=== PATIENT | male | born 1970 | race Caucasian/White ===

== ENCOUNTER 2019-09-03 16:47 | Inpatient (IN) | payer SELFPAY ==
[~2019-09-03] VITALS: Ht 177.8 cm; Wt 147.8 kg
--- NOTE | ~2019-09-03 | HEMODYNAMI ---
PATIENT:YOU FELIZ MEDICAL RECORD: [id number] : 68 [id number] ADMISSION DATE: 09/03/19 Generatedon:09/04/201916:01 Patient name: YOU FELIZ Patient #: [id number] : 1970 Date of study: 09/04/2019 Page: Of Hemodynamic Procedure Report Patient Data Patient Demographics Procedure consent was obtained First Name: YOU Gender: Male Last Name: TRAY : 1970 Patient #: [id number] Age: 48 year(s) Race: SSN: [id number] Additional ID: [id number] Contact details [address]: [address] [place] [address] State: [place] City: [place] Zip code: [address] Admission Admission Data Admission Date: 09/03/2019 Admission Time: 18:46 Room #: D.2313 Lab Results Lab Result Date: 09/04/2019 Lab Result Time: 0:00 Biochemistry Name Units Result Min Max BUN mg/dl 22 --(----)-* 7 18 Creatinine mg/dl 1 --(--*-)-- 0.6 1.3 eGFR ml/min 84 -*(----)-- 90 120 NONAFRICAN CBC Name Units Result Min Max Hemoglobin g/dl 13 -*(----)-- 13.5 17.5 Procedure Procedure Types Cath Procedure Diagnostic Procedure LHC LHC w/Coronaries Temporary Pacemaker Intra-Aortic Balloon Pump Cardioversion External Sedation Charges Moderate Sedation up to 45 minutes Procedure Description Procedure Date Procedure Date: 09/04/2019 Procedure Start Time: 14:48 Procedure End Time: 15:28 Procedure Staff Name Function Vasu Rob MD Performing Physician Dafne Skelton RT Monitor Richelle Hicks RT Scrub Sharlene Cristobal RN Nurse Jon Simental RT Crayon Grader Procedure Data Cath Procedure Fluoroscopy Diagnostic fluoroscopy Total fluoroscopy Time: 4.1 time: 4.1 min min Diagnostic fluoroscopy Total fluoroscopy dose: 791 dose: 791 mGy mGy Contrast Material Contrast Material Type Amount (ml) Isovue 300 60 Entry Location Entry Primary Successful Side Size Upsize Upsize Entry Closure Succes sful Closure Location (Fr) 1 (Fr) 2 (Fr) Remarks Device Remarks Femoral Right 6 Fr 8 Fr Sheath artery Short sutured in place Femoral Right 6 Fr Sheath vein Short sutured in place Femoral Left 4 Fr Sheath vein sutured in place Estimated blood loss: 5 ml Diagnostic catheters Device Type Used For End Catheter Placement MULTIPACK JL 4.0 5Fr Left Coronary catheter Angiography MULTIPACK 3DRC 5Fr Right Coronary catheter Angiography MULTIPACK Pigtail 5 Fr Multi-vessel catheter Angiography Procedure Complications No complications Procedure Medications Medication Administration Route Dosage 0.9% NaCl I.V. 100 ml/hr Oxygen 100 Lidocaine 2% added to field 20 Heparin Flush Bag added to field 2 bags (1000units/500ml NS) Diprivan 1% I.V. 15 mcg/kg/min (Propofol) Benadryl I.V. 50 mg Epinephrine I.V. 1 mg Epinephrine I.V. 1 mg Dopamine I.V. drip 20 mcg/kg/min (400mg/250ml D5W) Atropine I.V. 1 mg Sodium Bicarb I.V. 50 meq Sodium Bicarb I.V. 50 meq Calcium Chloride I.V. 1 g Sodium Bicarb I.V. 50 meq Heparin Drip I.V. drip 1000 units/hr (91698nxkup/250 D5W) Amiodarone Loading I.V. drip 150 mg Dose (150mg/100ml D5W) Epinephrine I.V. 1 mg Neosynephrine I.V. drip 30 mcg/kg/min (20mg/250ml D5W) Hemodynamics Rest HGB: 13 (g/dl) Heart Rate: 33 (bpm) Pressure Samples Time Site Value (mmHg) Purpose Heart Use Rate(bpm) 15:04 LV 176/37,43 Snapshot 106 Snapshots Pre Cath Intra NCS Post Cath Vital Signs Time Heart Resp SPO2 etCO2 NIBP (mmHg) Rhythm Pain Sedation Rate (ipm) (%) (mmHg) Status Level (bpm) 14:45:04 51 21 100 0 Measuring 3 0 (11) 1(A) degree , No Heart pain Block 14:46:28 36 15 100 0 Time 3 0 (11) 1(A) Exceeded degree , No Heart pain Block 14:51:26 37 15 100 0 Measuring 3 0 (11) 1(A) degree , No Heart pain Block 14:52:50 35 15 100 0 Time 3 0 (11) 1(A) Exceeded degree , No Heart pain Block 14:57:29 48 25 81 0 Time 3 0 (11) 1(A) Exceeded degree , No Heart pain Block 15:00:48 31 13 81 0 129/67(126) 3 0 (11) 1(A) degree , No Heart pain Block 15:05:47 [address] 0 (11) 1(A) , No pain 15:07:11 [address] 0 (11) 1(A) Exceeded , No pain 15:12:10 [address] 0 (11) 1(A) , No pain 15:13:34 [address] 0 (11) 1(A) Exceeded , No pain 15:17:44 90 25 98 0 Time NSR 0 (11) 1(A) Exceeded , No pain 15:22:43 84 20 98 0 Measuring NSR 0 (11) 1(A) , No pain 15:23:48 82 22 95 0 Time NSR 0 (11) 1(A) Exceeded , No pain 15:30:11 79 21 94 0 Time NSR 0 (11) 1(A) Exceeded , No pain 15:39:41 89 20 0 Time NSR 0 (11) 1(A) Exceeded , No pain Medications Time Medication Route Dose Verified Delivered Reason Not es Effectiveness by by 14:43:27 0.9% NaCl I.V. 100 ml/hr Vasu Su used for [facility] procedure MD SANABRIA 14:43:28 Oxygen vent 100% FiO2 Vasu Su for low 02 [facility] sats MD SANABRIA 14:44:07 Lidocaine 2% added 20ml vial Vasu Leone for local to [facility] anesthetic field MD WILDE 14:44:13 Heparin Flush added 2 bags Vasu Leone used for Bag to [facility] procedure (1000units/500ml field MD WILDE NS) 14:44:22 Diprivan 1% I.V. 15mcg/kg/min Vasu Su for inf using (Propofol) [facility] sedation upon MD SANABRIA arrival to 14:46:18 Benadryl I.V. 50 mg Vasu Sharlene used for [facility]ronJ[facility] Cristobal procedure MD SANABRIA 14:55:53 Epinephrine I.V. 1 mg Vasu Sharlene For DarronJas Cristobal bradycardia RN 14:57:23 Epinephrine I.V. 1 mg Vasu Sharlene For DarronJas Cristobal bradycardia MD SANABRIA 14:58:37 Dopamine I.V. 20 Vasu Sharlene Per (400mg/250ml drip mcg/kg/min DarronJas Cristobal physician D5W) MD SANABRIA 14:59:17 Atropine I.V. [address] [facility] bradycardia RN 15:00:49 Sodium Bicarb I.V. 50 meq Vasu Sharlene Per DarronJas Cristobal physician RN 15:01:53 Sodium Bicarb I.V. 50 meq Vasu Sharlene Per DarronJas Cristobal physician MD SANABRIA 15:02:03 Calcium Chloride I.V. 1 g Vasu Sharlene Per DarronJas Cristobal physician MD SANABRIA 15:05:05 Heparin Drip I.V. 1000 Vasu Sharlene Per (37868wvgpk/250 drip units/hr DarronJas Cristobal physician D5W) MD SANABRIA 15:09:23 Sodium Bicarb I.V. 50 meq Vasu Sharlene Per DarronJas Cristobal physician RN 15:21:56 Amiodarone I.V. 150 mg Vasu Sharlene Per Loading Dose drip [facility] physician (150mg/100ml RN D5W) 15:32:08 Epinephrine I.V. 1 mg Vasu Sharlene For DarronJas Cristobal bradycardia MD SANABRIA 15:36:50 Neosynephrine I.V. 30 Vasu Sharlene For (20mg/250ml D5W) drip mcg/kg/min [facility] hypotension revenue cycle administrator Log Time Note 14:20:49 Sharlene Cristobal RN sent for patient. Start room use. 14:22:51 Diagnostic Cath Status : Emergency 14:25:47 Lab Result : BUN 22 mg/dl 14:25:47 Lab Result : Hemoglobin 13 g/dl 14:25:47 Lab Result : eGFR NONAFRICAN 84 ml/min 14:25:47 Lab Result : Creatinine 1 mg/dl 14:26:51 Informed consent obtained and on chart 14:29:46 Procedure Status Emergent Heart Cath (AMI). 14:29:50 Time tracking: Regular hours (M-F 7:00 - 5:00) 14:29:55 Plan of Care:Hemodynamics will remain stable., Cardiac rhythm will remain stable., Comfort level will be maintained., Respiratory function will remain adequate., Patient/ family verbilizes understanding of procedure., Procedure tolerated without complication., Recovers from procedure without complications.. 14:30:06 Risk of Mortality: 2.1 14:30:10 Risk of blood transfusion: 0.8 14:30:14 Risk of JAY: 2.0 14:30:25 2) 60-89 Mildly reduced kidney function, and other findings (as for stage 1) point to kidney disease. 14:30:31 Maximum allowable contrast dose (3.7 X eGFR X 0.75)233 ml. 14:35:11 Patient received from ICU to [facility] 1 On ventilator. Tansferred to table in Supine position. 14:35:12 Warm blankets applied, and emmie hugger turned on for patient comfort. 14:35:12 Correct patient and procedure confirmed by team. 14:35:13 ECG and BP/O2 sat monitors applied to patient. 14:43:15 Vital chart was started 14:43:17 Baseline sample Acquired. 14:43:21 Rhythm: sinus bradycardia 14:43:27 0.9% NaCl 100 ml/hr I.V. was administered by Sharlene Cristobal RN; used for procedure; Verbal order read back and verified. 14:43:28 Oxygen 100% FiO2 vent was administered by Sharlene Cristobal RN; for low 02 sats; Verbal order read back and verified. 14:43:28 Full Disclosure recording started 14:43:32 H&P Date Dictated: 09/04/2019 Emergent; H&P N/A. 14:44:07 Lidocaine 2% 20ml vial added to field was administered by Vasu Rob MD; for local anesthetic; Verbal order read back and verified. 14:44:13 Heparin Flush Bag (1000units/500ml NS) 2 bags added to field was administered by Vasu Rob MD; used for procedure; Verbal order read back and verified. 14:44:22 Diprivan 1% (Propofol) 15mcg/kg/min I.V. was administered by Sharlene Cristobal RN; for sedation; infusing upon arrival to Verbal order read back and verified. 14:44:22 Pt arrived to [employer] on a Propofol drip and intubated. Unable to answer questions. 14:44:40 Family in waiting room. 14:44:50 Is the patient allergic to Iodine/contrast media? No. 14:45:00 Pre procedure: right dorsailis pedis pulse Doppler 14:45:03 Pre procedure: left dorsailis pedis pulse Doppler 14:45:25 Lab results completed and on chart. 14:45:43 --------ALL STOP TIME OUT------ 14:45:44 Final Timeout: patient, procedure, and site verified with staff and physician. All members of the team are in agreement. 14:45:46 Bilateral groins site verified by team. 14:45:50 Fire Safety Assessment: A--An alcohol-based skin anteseptic being used preoperatively., C--Open oxygen or nitrous oxide is being used., D--An ESU, laser, or fiber-optic light is being used. 14:46:05 Physical assessment completed. ASA score P 5 - A moribund patient who is not expected to survive without the operation as per Vasu Rob MD. 14:46:13 Sedation plan: IV Moderate Sedation Medication:Propofol 14:46:18 Benadryl 50 mg I.V. was administered by Sharlene Cristobal RN; used for procedure; Verbal order read back and verified. 14:46:27 Use device set Femoral Dx 14:46:28 ACIST Manifold (54161) opened to sterile field. 14:46:29 ACIST Hand Control (59910) opened to sterile field. 14:46:30 ACIST Syringe (37108) opened to sterile field. 14:46:31 Bag Decanter (2002S) opened to sterile field. 14:46:31 Medline Cath Pack ([id number]) opened to sterile field. 14:46:33 DIAGNOSTIC Multipack 5Fr catheter set ([id number]) opened to sterile field. 14:46:34 SHEATH 5FR [place] (HHB734) opened to sterile field. 14:46:35 EMERALD Guide Wire (502-220) opened to sterile field. 14:47:15 SHEATH 6FR [place] (ZET919) opened to sterile field. 14:47:16 5Fr J Tip Temporary Pacing Catheter ([id number]) opened to sterile field. 14:47:58 Procedure started. 14:48:39 Local anesthetic to right femoral artery with Lidocaine 2% by Vasu Rob MD.INITIAL ACCESS ONLY 14:49:03 A 6 Fr Short sheath was inserted into the Right Femoral artery 14:50:52 A 6 Fr Short sheath was inserted into the Right Femoral vein 14:51:30 Temporary pacer inserted 14:54:16 Temporary pacer turned on with the following settings: Rate 80, MA 2, Mode: Demand. 14:55:13 14:55:16 A MULTIPACK JL 4.0 5Fr catheter was advanced over the wire and used for Left Coronary Angiography. 14:55:22 Pt arrived from ICU bed 13 on 100% FiO2 via portable vent w/ propofol @ 15mcg/kg/min. Pt unresponsive to stimulus but pupils equal and reactive to light. Pt in complete HB. Code initiated @ 1455 and ROSC achieved. See med list for code medications. NANO BP at this time. MD in room and aware of pt state. 14:55:43 14:55:53 Epinephrine 1 mg I.V. was administered by Sharlene Cristobal RN; For bradycardia; Verbal order read back and verified. 14:56:53 DR Rob noted no pressure; chest compressions started 14:57:23 Epinephrine 1 mg I.V. was administered by Sharlene Cristobal RN; For bradycardia; Verbal order read back and verified. 14:57:38 chest compressions paused 14:58:37 Dopamine (400mg/250ml D5W) 20 mcg/kg/min I.V. drip was administered by Sharlene Cristobal RN; Per physician; Verbal order read back and verified. 14:59:17 Atropine 1 mg I.V. was administered by Sharlene Cristobal RN; For bradycardia; Verbal order read back and verified. 15:00:49 Sodium Bicarb 50 meq I.V. was administered by Sharlene Cristobal RN; Per physician; Verbal order read back and verified. 15:01:28 LCA angiography performed. 15:01:31 Injector settings: Ml/sec: 3, Volume: 6, 15:01:53 Sodium Bicarb 50 meq I.V. was administered by Sharlene Cristobal RN; Per physician; Verbal order read back and verified. 15:02:03 Calcium Chloride 1 g I.V. was administered by Sharlene Cristobal RN; Per physician; Verbal order read back and verified. 15:02:13 Catheter removed. 15:02:21 A MULTIPACK 3DRC 5Fr catheter was advanced over the wire and used for Right Coronary Angiography. 15:03:19 RCA angiography performed. 15:03:21 Injector settings: Ml/sec: 3, Volume: 6, 15:03:34 Catheter removed. 15:03:59 A MULTIPACK Pigtail 5 Fr catheter was advanced over the wire and used for Multi-vessel Angiography. 15:04:13 LV hemodynamics recorded. 15:04:14 LV gram done using LARES 15:04:17 Injector settings: Ml/sec: 5, Volume: 15, 15:05:05 Heparin Drip (69369pyqgm/250 D5W) 1000 units/hr I.V. drip was administered by Sharlene Cristobal RN; Per physician; Verbal order read back and verified. 15:05:07 EF : 5 % 15:05:11 Catheter removed. 15:05:56 IABP 40cm balloon catheter ([id number]) opened to sterile field. 15:05:57 TUBING High Pressure Extension (IABP) opened to sterile field. 15:06:24 Sheath upsized to a 8 Fr. 15:08:40 40cc IABP inserted into the RFA . 15:09:23 Sodium Bicarb 50 meq I.V. was administered by Sharlene Cristobal RN; Per physician; Verbal order read back and verified. 15:10:03 2-0 Silk 685H opened to sterile field. 15:10:04 2-0 Silk 685H opened to sterile field. 15:15:21 Quick Combo opened to sterile field. 15:15:29 Defibrillator synced and charged to 200 Joules. 15:15:31 Shock delivered. 15:16:[address] [facility] (129802) opened to sterile field. 15:17:08 Local anesthetic to left femoral vein with Lidocaine 2% by Vasu Rob MD.ADDITIONAL ACCESS 15:17:23 A 4 Fr sheath was inserted into the Left Femoral vein 15:17:55 4f sheath inserted for additional IV access 15:19:07 patient BP on iabp 89/58 15:20:16 Sheath removed intact; hemostasis achieved with Sheath sutured in place to the Left Femoral vein. 15:20:24 Sheath removed intact; hemostasis achieved with Sheath sutured in place to the Right Femoral artery. 15:20:30 Sheath removed intact; hemostasis achieved with Sheath sutured in place to the Right Femoral vein. 15:21:56 Amiodarone Loading Dose (150mg/100ml D5W) 150 mg I.V. drip was administered by Sharlene Cristobal RN; Per physician; Verbal order read back and verified. 15:24:01 Procedure ended.(Physican Out) 15:25:33 Fluoroscopy time 04.10 minutes. 15::37 Fluoroscopy dose: 791 mGy 15:: Flurop Dose total: 791 15:: Dose Area Product 85634 mGy/cm. 15:26: Contrast amount:Isovue 300 60ml. 15:26:31 Maximum allowable dose exceeded? No. 15::32 Sharps counted by scrub and verified by R.N. 15::33 Insertion/operative site no bleeding no hematoma. 15:26:49 Post procedure rhythm: sinus rhythm 15::51 Estimated blood loss: 5 ml 15:28:16 Procedure type changed to Cath procedure, Diagnostic procedure, LHC, LHC w/Coronaries, Temporary Pacemaker, Intra-Aortic Balloon Pump, Cardioversion External, Sedation Charges, Moderate Sedation up to 45 minutes 15:28:17 Procedure and supply charges have been captured, reviewed, submitted and are correct. 15:28:26 Procedure Complication : No complications 15:28:38 Vital chart was stopped 15:28:41 [facility] Findings: mild to moderate CAD (<70%) 15:28:44 Operative report dictated upon procedure completion. 15:28:45 See physician's report for complete and final results. 15:28:49 Report given to ICU. 15:28:52 Patient transfered to ICU with Stretcher. 15:28:55 Procedure ended. 15::55 Full Disclosure recording stopped 15:30:[address] [place] (240925) opened to sterile field. 15:32:08 Epinephrine 1 mg I.V. was administered by Sharlene Cristobal RN; For bradycardia; Verbal order read back and verified. 15:36:50 Neosynephrine (20mg/250ml D5W) 30 mcg/kg/min I.V. drip was administered by Sharlene Cristobal RN; For hypotension; Verbal order read back and verified. Device Usage Item Name Manufacture Quantity Catalog Number [facility] Part Suni mary [facility] Lot# / Charge Number Stock Stock Serial# Code ACIST Manifold Acist 1 59410 353687 317262 [id number] 5 (48081) Medical [employer] Inc ACIST Hand Acist 1 95294 074057 226297 237648 5 Control (81367) [employer] Inc ACIST Syringe Acist 1 12819 773555 504487 320734 20 (71731) Medical Systems Inc Bag Decanter Microtek 1 2001S 272376 39657 361588 5 (2001S) Medical Inc. Medline Cath Medline 1 [id number] 804829 25132 984269 5 Pack ([id number]) DIAGNOSTIC Cardinal 1 EM4156 315960 27135 542740 30 Multipack 5Fr Health catheter set (RU9275) SHEATH 5FR Terumo 1 YFJ507 002534 828131 664727 5 [place] (XQY054) EMERALD Guide Cardinal 1 502-455 018495 038431 899020 5 Wire (502-455) Health SHEATH 6FR Terumo 1 PLX498 004970 385347 587278 40 [place] (FMR207) 5Fr J Tip Mckeon 1 [id number] 352749 16987 759684 2 Temporary Lifesciences Pacing Catheter ([id number]) MULTIPACK JL Cardinal 1 552971 5 4.0 5Fr Health catheter MULTIPACK 3DRC Cardinal 1 105773 5 5Fr catheter Health MULTIPACK Cardinal 1 675443 5 Pigtail 5 Fr Health catheter IABP 40cm [facility] 1 1557-03-4803-01U 004486 177271 617099 1 LookUP catheter (252787) ([id number]) TUBING High Merit 1 [id number] 871718 913737 0 5 Pressure Medical Extension (IABP) 2-0 Silk 685H Ethicon 2 685H 335397 08392 171731 5 Quick Combo R-Health 1 12961-118750 120834 719615 988463 [address] [facility] 1 749014 893130 530335 013313 5 Armando (640759) SHEATH [address] [facility] Armando 1 964444 711593 639768 573060 Nicky Roberts ([id number]) Signature Audit [place] Stage Time Signature Unsigned Intra-Procedure 09/04/2019 Dafne Skelton 4:00:19 PM RT(R) Intra-Procedure 09/04/2019 Sharlene Cristobal 4:00:52 PM RN Intra-Procedure 09/04/2019 Vasu Saldana 4:01:25 PM Jas WILDE [place] [id number] [place] [address]
[2019-09-03] MEDS ORDERED: NEURONTIN 300300 MG PO (16:55)
[2019-09-03] MEDS ORDERED: CELEBREX 100 M100 MG PO (16:55)
[2019-09-03] MEDS ORDERED: ROBAXIN500 MG PO (16:55)
[2019-09-03] MEDS ORDERED: ZOLOFT50 MG PO (16:56)
[2019-09-03] MEDS ORDERED: XARELTO20 MG PO (16:56)
[2019-09-03 17:13] VITALS: BP 129/97
[2019-09-03 17:39] LABS: BASOPHILS 0.1 % (0-2); EOSINOPHILS 0 % (0-7); HEMATOCRIT 39.3 % (42.0-54.0); HEMOGLOBIN 12.5 g/dL (13.5-17.5); IMMATURE GRANULOCYTES 0.1 % (0-5); LYMPHOCYTES 8.6 % (15-50); MCH 29.4 pg (26.0-34.0); MCHC 31.8 g/dL (31.0-37.0); MCV 92.5 fL (80.0-100.0); MEAN PLATELET VOLUME 11.1 fL (7.4-10.4); MONOCYTES 6.4 % (2-11); NEUTROPHILS 84.8 % (40-80); PLATELET COUNT 212 10x3/uL (130-400); RBC 4.25 10x6/uL (4.20-6.10); RDW 14.8 % (11.5-14.5); WBC 7.3 10x3/uL (4.8-10.8)
[2019-09-03 17:48] LABS: CALC OSMOLALITY 277 mosm/kg (275-300); CALCIUM 8.5 mg/dL (8.5-10.1); CARBON DIOXIDE 27.6 mmol/L (21.0-32.0); CHLORIDE - SERUM 102 mmol/L (98-107); CREATININE - SERUM 0.9 mg/dL (0.6-1.3); GLUCOSE 117 mg/dL (74-106); POTASSIUM - SERUM 4.4 mmol/L (3.5-5.1); SODIUM 138 mmol/L (136-145); UREA NITROGEN 15 mg/dL (7-18); eGFR NON AFRICAN AMERICAN > 90 mL/min (90-120)
[2019-09-03 17:49] LABS: APTT 34.9 SECONDS (22.8-39.4); INR 1.63 (0.85-1.17); PROTIME 18.7 SECONDS (11.6-15.0)
[2019-09-03 18:14] LABS: ALBUMIN 3.3 g/dL (3.4-5.0); ALKALINE PHOSPHATASE 125 U/L (46-116); ALT (SGPT) 96 U/L (10-68); CKMB 1.9 U/L (0.0-3.6); CREATINE KINASE 156 UL (21-232); MAGNESIUM - SERUM 1.7 mg/dL (1.8-2.4); PROTEIN - SERUM 6.8 g/dL (6.4-8.2); TROPONIN-I 0.048 ng/mL (0.000-0.060)
[2019-09-03 20:00] VITALS: BP 102/82
--- NOTE | 2019-09-03 20:00 | NUR ---
RECEIVED REPORT FROM WILLIE. PATIENT IS ALERT AND ORIENTED, RESTING COMFORTABLY IN BED. RESPIRATIONS ARE EVEN AND UNLABORED. NO S/S OF DISTRESS. NO C/O PAIN. CALL LIGHT WITHIN REACH. WILL CPOC.
[2019-09-03 20:38] VITALS: BP 125/53
[2019-09-03 22:59] LABS: CKMB 1.4 U/L (0.0-3.6); CREATINE KINASE 126 UL (21-232); TROPONIN-I 0.038 ng/mL (0.000-0.060)
[2019-09-03 23:31] VITALS: BP 120/68; Ht 177.8 cm; Wt 147.8 kg
[2019-09-04] VITALS (28 sets, daily range): BP systolic 38–132; BP diastolic 10–95
--- NOTE | 2019-09-04 05:58 | NUR ---
PATIENT C/O SOB. VITALS OBTAINED BP 121/80. O2 99% ON 2L NC. R 22. PATIENT STATED THAT HE WAS SUPPOSE TO HAVE SOMETHING FOR HIS COUGH ORDERED. PATIENT COMPLAINING THAT THE PATIENT WAS SUPPOSE TO HAVE LASIX LIKE HE DID AT THE OTHER HOSPITAL. SAID SHE WAS TOLD THAT HE HAD FLUID AROUND HIS HEART. EXPLAINED TO PATIENT THAT HE WAS GOING TO HAVE AN ECHO THIS AM. PATIENT IS VITALS WERE GREAT. NEITHER THAT PATIENT OR WERE SATISIFED. PAGED DARRIUS GASPAR APN. ORDERED GIVEN FOR MIKE LANDRY.
[2019-09-04 06:27] LABS: HEMATOCRIT 41.1 % (42.0-54.0); MCH 29.7 pg (26.0-34.0); MCHC 31.6 g/dL (31.0-37.0); MCV 94.1 fL (80.0-100.0); MEAN PLATELET VOLUME 11.5 fL (7.4-10.4); PLATELET COUNT 236 10x3/uL (130-400); RBC 4.37 10x6/uL (4.20-6.10); RDW 14.9 % (11.5-14.5); WBC 7.9 10x3/uL (4.8-10.8)
[2019-09-04 06:38] LABS: CALC OSMOLALITY 282 mosm/kg (275-300); CALCIUM 8.5 mg/dL (8.5-10.1); CARBON DIOXIDE 29.6 mmol/L (21.0-32.0); CHLORIDE - SERUM 104 mmol/L (98-107); CKMB 1.5 U/L (0.0-3.6); CREATINE KINASE 107 UL (21-232); GLUCOSE 116 mg/dL (74-106); MAGNESIUM - SERUM 2.1 mg/dL (1.8-2.4); PHOSPHOROUS 3.4 mg/dL (2.5-4.9); POTASSIUM - SERUM 4.4 mmol/L (3.5-5.1); PRO BNP 6348 pg/mL (0-125); SODIUM 140 mmol/L (136-145); TROPONIN-I 0.032 ng/mL (0.000-0.060); eGFR NON AFRICAN AMERICAN 84 mL/min (90-120)
[2019-09-04 06:39] LABS: UREA NITROGEN 22 mg/dL (7-18)
--- NOTE | 2019-09-04 07:33 | NUR ---
REPORT RECEVIED FROM GLASS ETCHER AND PATIENT CARE ASSUMED. PATIENT LAYING IN BED ON LEFT SIDE WITH EYES CLOSED AND BREATHING EVENLY. AT BS. SHOWED WHERE KITCHENETTE AND COFEE WAS. WILL CONTINUE WITH PLAN OF CARE. SR UP X 2 BED IN LOW POSITION AND CALL LIGHT IN REACH.
[2019-09-04 10:16] LABS: EOSINOPHILS 1 % (0-7); LYMPHOCYTES 17 % (15-50); MONOCYTES 10 % (2-11); NEUTROPHILS 62 % (40-80); PLATELET ESTIMATE NORMAL; ROULEAUX OCC
--- NOTE | 2019-09-04 11:45 | CN ---
PATIENT NAME:YOU FELIZ MEDICAL RECORD: [id number] : 68 LOCATION:. D.2121 ADMIT DATE: 09/03/19 ACCOUNT: [id number] CONSULTING PHYSICIAN: SABINO GUZMAN MD REFERRING PHYSICIAN: WENDY SINGH MD DATE OF CONSULTATION: 09/04/2019 HISTORY OF PRESENT ILLNESS: A 48-year-old gentleman with a history of DVT diagnosed in December of 2018 during time of left hip reconstruction, placed on Xarelto at that time, complained of coughing, fever and chills over the last 3 days, found to be in atrial flutter, 2:1 block, rate slowed down somewhat, Cardizem drip. No anginal type symptomatology. We are asked to see him concerning his cardiovascular status. PAST MEDICAL HISTORY: Includes: 1. History of DVT, as described above. 2. Chronic pain. MEDICATIONS: Include Celebrex 200 mg p.o. daily, Neurontin 600 p.o. t.i.d., Zoloft 50 every day, Xarelto 20 mg p.o. day, Robaxin 1.5 grams t.i.d. ALLERGIES: PENICILLIN. SOCIAL HISTORY: Nonsmoker, nondrinker. Difficulty with his ADLs due to residual hip problems. No set exercise program. REVIEW OF SYSTEMS: The patient reports easy bruising but reports no swollen glands. The patient reports no fever, no night sweats, no significant weight gain, no significant weight loss. No significant exercise tolerance. The patient reports no dry eyes, no irritation, no vision change. Patient reports no difficulty hearing and no ear pain. Patient reports no frequent nose bleeds or nose and sinus problems. Patient reports on arm pain on exertion. No shortness of breath while lying down. No history of heart murmur. Patient reports no cough, no wheezing or coughing up blood. Patient reports no abdominal pain, no vomiting. Normal appetite. No diarrhea and not vomiting blood. No nausea and no constipation. Patient reports no incontinence. No difficulty urinating. No hematuria. No increased frequency. Patient reports no muscle aches. No weakness, no arthralgias, no back pain. No swelling of the extremities. Patient reports no abnormal mole, no jaundice, no rashes. Reports no loss of consciousness. No weakness and no numbness. No seizures, dizziness, or headaches. The patient reports no depression, no sleep disturbance, feeling safe in a relationship and no alcohol abuse. Patient reports on fatigue. Reports no runny nose or sinus pressure. No itching, no hives, and no frequent sneezing. PHYSICAL EXAMINATION: GENERAL: Pleasant gentleman, in no acute distress, appears stated age. VITAL SIGNS: Blood pressure 114/67, pulse 60 and irregular. HEENT: Normocephalic, atraumatic. NECK: No bruits noted. HEART: Irregularly irregular, II/ systolic ejection murmur. LUNGS: Diminished breath sounds, prolonged expiratory phase. ABDOMEN: Soft, nontender. EXTREMITIES: Pulses 2+, 1+ edema. CONSULT REPORT [id number] YOU FELIZ IMPRESSION: Atrial flutter, variable block. Her recent onset, we will plan for control rate with Cardizem drip, being class III antiarrhythmic, sotalol. PLAN: Cardioversion in the near future. TRANSINT:[id number] Voice Confirmation ID: [id number] DOCUMENT ID: [id number] SABINO GUZMAN MD at 1145 CC: [id number] DICTATION DATE: 09/04/1928 CLIENT SUPPORT ASSOCIATE: 09/04/19 0917 ADM [place] [id number] [place] [id number]
--- NOTE | 2019-09-04 12:15 | NUR ---
PATIENT SITTING UP ON SIDE OF BED EATING LUNCH. PATIENT BREATHING HEAVILY. PATIENT HAS NC AT 2 L GOING. O2 SAT 97%. ENCOURAGED PATIENT TO EAT SLOWLY AND INHALE THROUGH NOSE. PATIENT AND VERBALIZED UNDERSTANDING. NEW ORDER RECEIVED FOR BUMEX DRIP AND DOBUTAMINE DRIP. VERIFIED VERALLY OVER PHONE WITH DR GUZMAN THAT PATIENT NEEDS TO BE ON BUMEX, CARDIAZEM AND DOBUTAMINE DRIP AND DR GUZMAN VERIFIED THAT PATIEBNT DOES. CALLED PHARMACY AND SPOKE WITH JERONIMO AND LET HIM KNOW THAT PATIENT NEEDS RXS RAKAN. JERONIMO VERBALIZED UNDERSTANDING.
--- NOTE | 2019-09-04 13:57 | NUR ---
CALLED TO PATIENTS ROOM BY . UPON ENTERING ROOM, PATIENT LAYING IN BED ON BACK WITH HOB ELEVATED 45 DEGREES. IV DRIPS OF BUMEX, CARDIAZEM AND DOBUTAMINE INFUSING ORDERED. PATIENT HAS 02 NC INFUSING AT 4L. PATIENT IS CARLISLE IN COLOR, GASPING FOR BREATH. CALLED OUT FOR OTHER NURSE TO CALL RAPID RESPONSE. RAPID RESPONSE CALLED. NO AIR MOVEMENT AUSCULTATING PATIENTS LUNGS. DR SINGH ENTERED ROOM ORDERED AND PATIENT GIVEN SOLU MEDROL 15 IV PUSH. ORDER RECEIVED FROM DR SINGH FOR MONTSE GARCIA TO BE CALLED. MONTSE GARCIA CALLED . RESPIRATORY, ER AND ICU PERSONEL IN ROOM. ER DR SERINA WILLARD. ORDERS GIVEN AND MEDS GIVEN EOMIDATE 20 MG IV PUSH SUCCS 100 MG IV PUSH AND PATIENT INTUBATED AT 1347 AND RESPIRATORY WITH AMBU BAG RESPIRATIONS PATIENT TRANSFERRED TO ICU.
--- NOTE | 2019-09-04 13:58 | NUR ---
PT ARRIVED TO ROOM 2313 VIA BED ACCOPANIED BY STAFF. PT HOOKED UP TO MONITOR. VSS. WILL CONT TO MONITOR. RT AT BEDSIDE.
--- NOTE | 2019-09-04 14:31 | NUR ---
1400 DR GUZMAN IN TO SEE PT AND ORDER RECIEVED TO SEND PATIENT TO [facility] FOR LHC WITH POSSIBLE IABP.. SPOKE WITH DR GUZMAN AND SIGNED PERMITS. 1430 PT TRANSPORTED VIA BED WITH BAGGING TO ORAL ETT BY RT TO [facility] , FAMILY TAKEN TO [facility] WAITING ROOM
[2019-09-04 15:21] LABS: CHOL - HDL RATIO 4.2 ratio (2.3-4.9); LDL-HDL RATIO 2.7 ratio (1.5-3.5)
--- NOTE | 2019-09-04 16:15 | NUR ---
PT BACK FROM CLINICAL APPEALS AUDITOR AT THIS TIME. DR LOU AT BEDSIDE NEW ORDER RECEIVED. IABP PATENT DRSG CDI NO BLOOD VISIBLE IN TUBING, NO PEDAL PULSE PRESENT AT THIS TIME. BILAT LEGS COLD TO TOUCH MINIMAL MOTTLING NOTED, BILAT PEDAL PULSE ABSENT. BILAT RADIAL PULSES WEAK. TPM NOTED PATENT VVI 80 VMA 20 SENSITIVITY 2. SEE FLOW SHEET FOR IABP FINDINGS. FOURNIER PLACED AT THIS TIME 0 UOP NOTED PHYSICIAN NOTIFIED.
--- NOTE | 2019-09-04 17:43 | NUR ---
DR GUZMAN PUT RATE OF 25 FOR DOPAMINE AND [address] LOU.
--- NOTE | 2019-09-04 17:46 | NUR ---
PER DR LOU DOPMAINE MAX OF 50 MCG
--- NOTE | 2019-09-04 18:10 | NUR ---
doyle at bedside. turned off augmentation pressure alarm.
--- NOTE | 2019-09-04 18:25 | NUR ---
dopamine started per dr yanez at 10 mcg
--- NOTE | 2019-09-04 18:30 | NUR ---
3 AMPS [address]B PER [address] CHINN. RIZO AT BEDSIDE SPEAKING TO FAMILY
--- NOTE | 2019-09-04 18:59 | NUR ---
dr wright at bedside
--- NOTE | 2019-09-04 19:00 | NUR ---
no gag reflex. pupils dilated to 7 fixed.
--- NOTE | 2019-09-04 19:20 | NUR ---
REPORT RECEIVED, SHIFT ASSESSMENT COMPLETED PER FLOW SHEET, SEE FOR DETAILS. FAMILY AT BEDSIDE. DR. SINGH AWARE OF PATIENT'S CONDITION.
--- NOTE | 2019-09-04 20:50 | NUR ---
FAMILY AT BEDSIDE, UPDATE GIVEN ON PATIENTS CURRENT STATUS. REQUESTED. TO STOP ALL MEDICATIONS AND EXTUBATE. [address] LOU, DR. SINGH, AND DR. SOTO. [address] LOU AND UPDATE GIVEN ON PATIENT'S CURRENT STATUS, LABS AND VITAL SIGNS REVIEWED. INFORMED HIM OF 'S REQUEST TO STOP ALL MEDICATIONS AND EXTUBATED. PER DR. LOU START COMFORT CARE MEASURES. SEE ORDERS. [address] DR. SOTO NOTIFIED OF FAMILY'S REQUEST AND NEW ORDERS FOR COMFORT CARE. 2109 NANNETTE NOTIFIED. 2119 FORM BUILDING SUPERVISOR NOTIFIED. WILL CALL BACK WITH TIME OF . 2127 ALL MEDICATIONS DISCONTINUED, EXTUBATED PER RT. [address] ON MONITOR[address] SINGH NOTIFIED.
--- NOTE | 2019-09-04 23:19 | NUR ---
DR. MURRAY AT BEDSIDE TO PRONOUNCE PATIENT. FAMILY REQUESTING AUTOPSY. 4502 PAGED FURNACE MECHANIC. WILL WAIT FOR CALL BACK.
--- NOTE | 2019-09-05 00:02 | NUR ---
FOREST E[employer]OMICS PROFESSOR NOTIFIED OF FAMILY'S REQUEST FOR AUTOPSY. 0018 MANAGER INTERNSHIP RETURNED CALL INFORMED HIM OF PATIENT'S EXPIRATION AND FAMILY'S REQUEST FOR AUTOPSY. PER MANAGER INTERNSHIP PATIENT DOES NOT MEET CRITERIA FOR AUTOPSY, MANAGER INTERNSHIP STATED THAT FAMILY WILL NEED TO REQUEST A PRIVATE AUTOPSY FROM HOME. 0028 [facility] CALLED PER FAMILY'S REQUEST. 0035 SPOKE TO [place] FROM [facility], INFORMED HIM OF PATIENT'S REQUEST FOR AUTOPSY. HERE AND SPOKE TO [place].
--- NOTE | 2019-09-05 01:20 | NUR ---
PER PROPERTY MANAGEMENT ACCOUNTANT, OK TO RELEASE BODY TO [facility] . CALLED. 0234 [place] FROM [facility] HERE TO TAKE BODY.
--- NOTE | 2019-09-05 12:01 | EC ---
PATIENT:YOU FELIZ DATE OF SERVICE: 09/03/19 SEX: M MEDICAL RECORD: [id number] DATE OF : [birth year] LOCATION:[facility] AGE OF PATIENT: 48 ADMISSION DATE: 09/03/19 REFERRING PHYSICIAN: INTERPRETING PHYSICIAN: SABINO GUZMAN MD ECHOCARDIOGRAM REPORT ECHO CHARGES 5 ECHO LIMITED Date: 09/04/19 CLINICAL DIAGNOSIS: ATRIAL FIB NEW ONSET, ELEVATED PRO/BNP ECHOCARDIOGRAPHIC MEASUREMENTS (adult normal given) AC root (d.<3.7cm) 4.0 cm LV Septum d (<1.2 cm> 1.7 cm Valve Excursion 2.1 cm LV Septum (systole) 1.8 cm Left Atria (s.<4.0cm> 6.0 cm LVPW d(<1.2cm) 1.5 cm RV (d.<2.3cm) 4.6 cm LVPW (sytole) 1.7 cm LV diastole(<5.6CM) 6.9 cm MV E-F(>70mm/sec) cm LV systole 6.1 cm LVOT Diameter 2.5 cm MV exc.(>10mm) cm Est.ejection fraction (50-75%) % DOPPLER: LVIT cm/sec A cm/sec E cm/sec LA cm/sec RVSP 24 mmHg LVOT cm/sec AOP1/2T m/s Asc. Ao cm/sec RVOT cm/sec RA cm/sec PA cm/sec AV Gradient Peak mmHg AV Mean mmHg AV Area cm MV Gradient Peak mmHg MV Mean mmHg MV Area cm COMMENTS: Liquid Yeast Supervisor: 2 SADI MOREIRA Spreader Operator Automatic: 1 Dr. Hay TAPE# PACS Pericardial Effusion N DATE OF SERVICE: Adequate 2D, color flow, spectral Doppler, and M-Mode. LVH present. LV internal dimension is dilated. LV is globally hypokinetic with reduced EF, estimated EF 15% to 20%. Aortic valve sclerosis without stenosis by Doppler interrogation. Left atrium is mildly dilated. Mitral valve shows no prolapse. Mild MR. Right-sided chambers are grossly normal. Moderate TR. TRANSINT:[id number] Voice Confirmation ID: [id number] DOCUMENT ID: [id number] ECHOCARDIOGRAM REPORT [id number] YOU FELIZ SABINO GUZMAN MD at 1201 CC: [id number] DICTATION DATE: 09/04/19 1313 DRY PAN CHARGER: 09/04/19 1337 DIS IN 09/04/19 [facility] [address] [place] [address]
--- NOTE | 2019-09-08 11:40 | NUR ---
Per CMS protocol, restraint report logged into data base.
--- NOTE | 2019-09-09 14:43 | OP ---
PATIENT NAME: YOU FELIZ MEDICAL RECORD: [id number] :[birth year] LOCATION:[facility] D.2313 ADMISSION DATE:09/03/19 SURGEON: SABINO GUZMAN MD DATE OF OPERATION: 09/04/2019 PROCEDURES: Cath, balloon pump placement, temporary wire placement, cardioversion. PROCEDURE: The patient was brought to lab asst in cardiogenic shock with a marked bradyarrhythmias including ventricular escape rhythm. Under fluoroscopic guidance, the temporary pacing wire was placed into the RV apex with capture down to 2 millivolts. PROCEDURE: Left heart catheterization, selective coronary angiography, right femoral artery approach. CATHETERS: A 5-Turkish sheath, 5/4 left and right Mery, 5/4 pig. FINDINGS: Left ventriculography in 30-degree LARES view shows severe global hypokinesis, abysmal LV. Estimated EF of 5% to 10%. CORONARY ANATOMY: LEFT MAIN: Left main free of disease. LAD: Free of disease in the diagonal system. CIRCUMFLEX: Free of disease in the marginal system. RIGHT CORONARY ARTERY: Dominant artery, gives rise to PDA, free of disease. DESCRIPTION OF PROCEDURE: Using the indwelling sheath, we then exchanged for an 8-Turkish sheath and under fluoroscopic guidance, placed the intraaortic balloon pump to the level of the tim. A balloon pump was inflations at 1:1. At this point in time, the patient went into atrial fibrillation with RVR with inability to track the balloon pump appropriately. A single synchronized shock was successful in restoring the atrial fibrillation to normal sinus rhythm with much improved tracking of the intraaortic balloon pump. IMPRESSION: 1. Successful intraaortic balloon pump placement successful cardioversion from atrial fibrillation to normal sinus rhythm. 2. Successful temporary wire placement. 3. Nonischemic cardiomyopathy with normal coronary anatomy. 4. The patient was returned to the ICU in critical condition. Pressure support, intraaortic balloon pump support, and respiratory support. Discussed with family in detail. His prognosis is poor at this point. TRANSINT:[id number] Voice Confirmation ID: [id number] DOCUMENT ID: [id number] SABINO GUZMAN MD at 1443 CC: [id number] DICTATION DATE: 09/04/19 1618 ENTERTAINMENT PRODUCTION PROFESSIONAL: 09/04/19 1742 DIS IN 09/04/19 [facility] [address] [facility] [place] [address]
== END 2019-09-04 21:32 | DRG 270 ==
LOC: D.ER 16:47 → D.ICU 18:46 → D.M2 18:46 → D.ICU 09-04 13:59
PROVIDERS: Family Medicine; Internal Medicine Interventional Cardiology; ADMIT Internal Medicine Nephrology; ATTEND Internal Medicine Nephrology
PROC: B2111ZZ Fluoroscopy of Multiple Coronary Arteries using Low Osmolar Contrast (ICD-10-PCS; 2019-09-04)
PROC: B2151ZZ Fluoroscopy of Left Heart using Low Osmolar Contrast (ICD-10-PCS; 2019-09-04)
PROC: 4A023N7 Measurement of Cardiac Sampling and Pressure, Left Heart, Percutaneous Approach (ICD-10-PCS; 2019-09-04)
PROC: 5A1935Z Respiratory Ventilation, Less than 24 Consecutive Hours (ICD-10-PCS; principal; 2019-09-04 14:30)
PROC: 5A02210 Assistance with Cardiac Output using Balloon Pump, Continuous (ICD-10-PCS; 2019-09-04 14:30)
PROC: 0BH17EZ Insertion of Endotracheal Airway into Trachea, Via Natural or Artificial Opening (ICD-10-PCS; 2019-09-04 14:30)
DX: I48.91 Unspecified atrial fibrillation (principal); I50.23 Acute on chronic systolic (congestive) heart failure; J96.00 Acute respiratory failure, unspecified whether with hypoxia or hypercapnia; N17.9 Acute kidney failure, unspecified; E87.2 Acidosis; Z68.42 Body mass index [BMI] 45.0-49.9, adult; I48.92 Unspecified atrial flutter; Z79.01 Long term (current) use of anticoagulants; E83.42 Hypomagnesemia; D64.9 Anemia, unspecified; Z86.718 Personal history of other venous thrombosis and embolism; E66.01 Morbid (severe) obesity due to excess calories; R57.0 Cardiogenic shock; I42.8 Other cardiomyopathies